=== PATIENT | male | born 1990 | race American Indian/Alaskan Native ===

== ENCOUNTER 2021-09-21 14:18 | Emergency (ER) | payer SELFPAY ==
[2021-09-21] MEDS ORDERED: KETOROLAC 30 MG/1 ML INJ IM ONE (15:34)
[2021-09-21 16:48] LABS: Bilirubin,Urine NEG (Negative); Blood,Urine NEG (Negative); Color,Urine Yellow (Yellow); Mucus,Urine 1+ /HPF; Protein,Urine <15 mg/dL mg/dL (Negative); Urobilinogen,Urine < 2.0 mg/dL (<2.0)
--- NOTE | 2021-09-21 18:00 | Ultrasound Report ---
Scrotal Ultrasound HISTORY: scrotal pain and swelling. TECHNIQUE: Grayscale and color imaging performed. COMPARISON: None FINDINGS: Right testicle measures 4.5 x 2.1 x 3.3 cm and the left measures 3.8 x 1.9 x 2.9 cm. Normal appearance and preserved blood flow. Each epididymis is unremarkable. There appears to be a small inguinal hernia on the left as well as slightly prominent spermatic cord vessels. IMPRESSION: 1. Unremarkable appearance of the testicles. 2. Findings most suggestive of a left inguinal hernia. Prominent vessels also noted in the region of the left spermatic cord could be related to hernia. Consider follow-up nonemergent CT for further william luation. Signer Name: Floyd Magallon MD Signed: 09/21/2021 5:55 PM Workstation Name: [id number]
[2021-09-21] MEDS ORDERED: metroNIDAZOLE 500 MG TAB PO ONE (18:10)
--- NOTE | 2021-09-21 18:16 | Emergency Department Report ---
ED Male HPI - General Chief complaint: Abdominal Pain Stated complaint: PAINFUL GROWTH PRIVATE AREA Time Seen by Provider: 09/21/21 15:22 Source: patient Mode of arrival: Ambulatory Limitations: No Limitations - History of Present Illness Initial comments: 31-year-old black male presents to the emergency department for evaluation of 2- week history of intermittent left groin pain. He states he has a known history of a left inguinal hernia for the last couple of weeks he has been swelling more often, staying swollen longer, and hurting more. He denies fever, dysuria, and penile discharge. Patient also requesting treatment for trichomonas stating that his fiance recently tested positive for trichomonas. MD Complaint: testicle swelling, groin pain -: Gradual, week(s) (2) Location: left inguinal region Radiation: none Severity: severe Quality: burning Consistency: intermittent swelling. denies: discharge, mass, rash, urinary retention, blood in urine, dysuria, fever, nausea/vomiting, incontinence - Related Data Sexually active: Yes Previous Rx's Medication Instructions Recorded Last Taken Type Acetaminophen/Codeine [Tylenol #3] 1 tab PO Q4HR PRN #30 tablet 02/19/13 Unknown Rx Ciprofloxacin HCl [Cipro] 500 mg PO BID #14 tablet 02/19/13 Unknown Rx Ketorolac [Toradol] 10 mg PO Q6H PRN #12 tab 09/21/21 Unknown Rx Allergies Allergy/AdvReac Type Severity Reaction Status Date / Time No Known Allergies Allergy Verified 09/21/21 14:54 ED Review of Systems ROS: Stated complaint: PAINFUL GROWTH PRIVATE AREA Other details as noted in HPI Comment: All other systems reviewed and negative Constitutional: denies: chills, fever Eyes: denies: eye pain, eye discharge, vision change ENT: denies: congestion Respiratory: denies: shortness of breath, SOB with exertion, SOB at rest, stridor, wheezing Cardiovascular: denies: chest pain, palpitations Gastrointestinal: abdominal pain. denies: nausea, vomiting, diarrhea, hematemesis, melena, hematochezia Genitourinary: testicular pain. denies: urgency, dysuria, frequency, hematuria, discharge Musculoskeletal: denies: back pain Neurological: denies: headache, weakness ED Past Medical Hx - Past Medical History Previous Medical History?: No Hx Congestive Heart Failure: No Hx Diabetes: No Hx Asthma: No Hx COPD: No - Surgical History Past Surgical History?: No - Social History Smoking Status: Never Smoker Substance Use Type: None - Medications Home Medications: Home Medications Medication Instructions Recorded Confirmed Last Taken Type Acetaminophen/Codeine [Tylenol #3] 1 tab PO Q4HR PRN #30 tablet 02/19/13 09/21/21 Unknown Rx Ciprofloxacin HCl [Cipro] 500 mg PO BID #14 tablet 02/19/13 09/21/21 Unknown Rx Ketorolac [Toradol] 10 mg PO Q6H PRN #12 tab 09/21/21 Unknown Rx ED Physical Exam - General Limitations: No Limitations General appearance: alert, in no apparent distress - Head Head exam: Present: atraumatic, normocephalic - Eye Eye exam: Present: normal appearance. Absent: conjunctival injection - Neck Neck exam: Present: normal inspection. Absent: tenderness, lymphadenopathy - Respiratory Respiratory exam: Present: normal lung sounds bilaterally. Absent: respiratory distress, wheezes, rales, rhonchi, stridor, chest wall tenderness - Cardiovascular Cardiovascular Exam: Present: regular rate, normal heart sounds - GI/Abdominal GI/Abdominal exam: Present: soft, tenderness (Left lower quad), normal bowel sounds. Absent: distended, guarding, rebound, rigid - exam: Present: testicular tenderness, scrotal swelling. Absent: urethral discharge External exam: Absent: erythema, swelling, lesions - Extremities Exam Extremities exam: Present: normal inspection, normal capillary refill. Absent: tenderness, pedal edema, joint swelling, calf tenderness - Back Exam Back exam: Present: normal inspection. Absent: CVA tenderness (R), CVA tenderness (L) - Neurological Exam Neurological exam: Present: alert, oriented X3, normal gait - Psychiatric Psychiatric exam: Present: normal affect, normal mood - Skin Skin exam: Present: warm, dry, intact, normal color ED Course Vital Signs 09/21/21 09/21/21 09/21/21 14:24 14:44 18:27 Temperature 98.1 F 98.0 F 98.9 F Pulse Rate 100 H 71 88 Respiratory 16 16 20 Rate Blood Pressure 141/68 124/58 132/85 [Left] O2 Sat by Pulse 100 100 100 Oximetry - Reevaluation(s) Reevaluation #1: 09/21/21 18:12 Patient reassessed after ultrasound results received and plan to reduce hernia. Patient noted to have decreased swelling and pain to left inguinal area. Hernia noted to already have reduced spontaneously. Patient instructed to lie flat for a few minutes. Patient states that he is concerned about STDs requesting treatment for trichomonas stating that his fiance recently tested positive for trichomonas. ED Medical Decision Making - Radiology Data Radiology results: report reviewed, image reviewed interpreted by me: Ultrasound testicles and scrotum: IMPRESSION: 1. Unremarkable appearance of the testicles. 2. Findings most suggestive of a left inguinal hernia. Prominent vessels also noted in the region of the left spermatic cord could be related to hernia. Consider follow-up nonemergent CT for further evaluation. - Medical Decision Making 31-year-old black male presents to the emergency department for evaluation of 2- week history of intermittent left groin pain. He states he has a known history of a left inguinal hernia for the last couple of weeks he has been swelling more often, staying swollen longer, and hurting more. He denies fever, dysuria, and penile discharge. Patient also requesting treatment for trichomonas stating that his fiance recently tested positive for trichomonas. Urine negative for UTI. Ultrasound scrotum and testicles positive for left inguinal hernia. After reassessment, swelling and pain noted to have resolved. Patient instructed to follow-up with general surgery for evaluation of and possible repair of hernia. He is advised to take medications as prescribed and follow-up in the emergency department for any concerning symptoms. He verbalized understanding of and agreement with plan of care. Critical care attestation.: If time is entered above; I have spent that time in minutes in the direct care of this critically ill patient, excluding procedure time. ED Disposition Clinical Impression: Left inguinal hernia, Possible exposure to STD Disposition: HOME / SELF CARE / HOMELESS Is pt being admited?: No Does the pt Need Aspirin: No Condition: Stable Instructions: Inguinal Hernia, Adult, [id number], Trichomoniasis Additional Instructions: Follow-up with general surgery for further evaluation and management. Return to the emergency department as needed. Prescriptions: Ketorolac [Toradol] 10 mg PO Q6H PRN #12 tab PRN Reason: Pain Referrals: LUISITO CLARK DO [Staff Physician] - 3-5 Days DOLORES MAN MD [Staff Physician] - 3-5 Days Forms: Work/School Release Form(ED) Time of Disposition: 18:16
[2021-09-21 18:28] VITALS: BP 132/85
== END 2021-09-21 18:28 | disposition home or self-care (01) ==
LOC: ED 14:18
DX: K40.90 Unilateral inguinal hernia, without obstruction or gangrene, not specified as recurrent (principal); Z20.2 Contact with and (suspected) exposure to infections with a predominantly sexual mode of transmission; Z79.899 Other long term (current) drug therapy
CPT/HCPCS: 81001; 87591; 93975; 96372; 99284; J1885